=== PATIENT | male | born 1945 | race Caucasian/White ===

== ENCOUNTER 2022-10-17 08:03 | Emergency (ER) | payer MEDICARE, SELFPAY ==
[2022-10-17 08:13] VITALS: BP 161/92; PULSE 73; RESP 16; TEMP 36.6; O2SAT 100
--- NOTE | 2022-10-17 08:23 | ED.EYEPROB ---
HPI - Eye Problem General Chief complaint: Eye Problems Stated complaint: irritation in left eye; discharge in eye Source: patient and RN notes reviewed Mode of arrival: ambulatory Limitations: no limitations History of Present Illness HPI Narrative: 77-year-old male presents with concern for bilateral eye redness, itchiness, irritation, worse on the left. Reports he has watery drainage and after the drainage began he developed some a irritation to the lower left eyelid. He denies overall vision changes, however he reports when his eye it drains it becomes slightly blurry. He denies any pain or pressure behind the eye. chief complaint: eye redness Related Data Home Medications Medication Instructions Recorded Confirmed clopidogrel 75 mg tablet 75 mg PO DAILY 10/20/19 10/17/22 lisinopril 20 mg tablet 20 mg PO DAILY 12/18/21 10/17/22 metoprolol tartrate 25 mg tablet 12.5 mg PO BID 12/18/21 10/17/22 rosuvastatin 10 mg tablet (Crestor) 10 mg PO DAILY 12/18/21 10/17/22 brimonidine 0.2 % eye drops 1 drp EACH EYE BID 10/17/22 10/17/22 Allergies Allergy/AdvReac Type Severity Reaction Status Date / Time morphine Allergy Unknown Vomiting Verified 09/24/22 08:26 Review of Systems Review of Systems: CONSTITUTIONAL: Denies malaise, chills, sweats, or fever. EYES: Denies visual changes. Reports bilateral redness, irritation, watery discharge, worse on the left ENT: Denies rhinorrhea, congestion, sinus pain, otalgia or sore throat. SKIN: Reports skin irritation on the left lower eyelid NEUROLOGIC: Denies numbness, weakness, or headache. PSYCHIATRIC: Denies anxiety or depression. All systems reviewed & are unremarkable except as noted in HPI and below PMFSH Past Medical History Medical History Arthritis Cataracts, bilateral Heart disease Hyperlipidemia Hypertension Trigger finger Type 2 diabetes mellitus with hyperglycemia Surgical History Surgical History H/O heart artery stent History of hand surgery 4 trigger finger thumb joint replacement History of hip replacement right Family History Family History Father Family history of obesity Hypertension Cerebrovascular accident Family history of diabetes mellitus in first degree relative Grandparent Family history of obesity Hypertension Cerebrovascular accident Diabetes mellitus Social History Social History (Updated 09/24/22 @ 08:27 by Rosa Cunningham [facility]) Smoking packs per day: 1 Smoking cigarettes per day: 20.0 Years smoked: 25 Smoking pack-years: 25.00 Smoking status: Never smoker Second hand tobacco smoke exposure: No Alcohol intake: current Alcohol use details: rarely, maybe 1 beer a week Substance use: never Comments At time of signature, agree with nursing past medical, surgical, social and family history. There is no relevant family history pertinent to the presenting complaint Exam Narrative: GENERAL: Well-appearing, well-nourished, and in no acute distress. HEAD: Normocephalic, atraumatic. EYES: PERRLA and EOMI. No nystagmus. Bilateral sclera and conjunctivae injected, worse on the left. Right Upper and lower eyelid unremarkable. Left lower eyelid slightly erythematous and edematous with dry scab noted. No periorbital edema noted ENT: Nares clear, turbinates pink, no rhinorrhea or epistaxis. Mucous membranes moist. TM pearly arenas with sharp light reflex bilaterally; no tragal tenderness. NECK: Supple. CHEST: No respiratory distress. Speaks in full sentences. HEART: Regular rate and rhythm. SKIN: Warm, dry, no visible rash. NEURO: Alert and oriented x3. PSYCH: Normal mood and affect Course Course Emergency Course: Patient has an appointment with his eye doctor on Thursday. Patient is aware of diagnosis, understands and agrees to treatment
== END 2022-10-17 08:39 | disposition home or self-care (01) ==
PROVIDERS: Emergency Provider Nurse Practitioner; PCP Internal Medicine
DX: H10.33 Unspecified acute conjunctivitis, bilateral (principal); F17.210 Nicotine dependence, cigarettes, uncomplicated; M19.90 Unspecified osteoarthritis, unspecified site; E78.5 Hyperlipidemia, unspecified; I10 Essential (primary) hypertension; E11.9 Type 2 diabetes mellitus without complications; H26.9 Unspecified cataract; Z95.5 Presence of coronary angioplasty implant and graft; Z96.641 Presence of right artificial hip joint
CPT/HCPCS: 99213; G0463

== ENCOUNTER 2023-09-30 14:31 | Emergency (ER) | payer MEDICARE, SELFPAY ==
--- NOTE | ~2023-09-30 | XR_ITS ---
XR wrist LT min 3V DATE: 09/30/2023 15:01 INDICATION: Palmar ulnar pain when extending wrist TECHNIQUE: 4 views COMPARISON: None FINDINGS: Prominent arterial calcifications of the forearm and wrist, suggesting diabetes. 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
[2023-09-30 14:39] VITALS: BP 151/69; PULSE 77; RESP 16; TEMP 36.6; O2SAT 99
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
== END 2023-09-30 15:20 | disposition home or self-care (01) ==
PROVIDERS: Emergency Provider Registered Nurse
DX: M77.8 Other enthesopathies, not elsewhere classified (principal); I10 Essential (primary) hypertension; E78.5 Hyperlipidemia, unspecified; E11.9 Type 2 diabetes mellitus without complications; Z87.891 Personal history of nicotine dependence
CPT/HCPCS: 73110; 99213; G0463